=== PATIENT | male | born 1970 | race Caucasian/White ===

== ENCOUNTER 2018-03-21 22:58 | Emergency (ER) | payer OTHER ==
--- NOTE | 2018-03-22 00:22 | ED.PDOC ---
History of Present Illness - General Chief Complaint: Lower Extremity Injury Stated Complaint: Smashed Toe w/Bowling Ball Time Seen by Provider: 03/22/18 00:11 Source: patient Exam Limitations: no limitations - History of Present Illness Initial Comments: Brooks Reyes 48 y/o male stated as he was pulling stuff out of his van his bowling ball rolled down fell and smashed his left big toe which happened yesterday.has pain on weight bearing left toe. Occurred: yesterday Pain - Lower Extremity: moderate: Left Foot Method of Injury: other - see hpi Improving Factors: rest Worsening Factors: movement Associated Symptoms: pain Allergies/Adverse Reactions: Allergies NO KNOWN ALLERGY Allergy (Verified 03/22/18 00:26) Home Medications: Ambulatory Orders Amoxicillin [Amoxil] 1,000 mg PO BID #30 cap 03/22/18 Review of Systems - Review of Systems Constitutional: States: no symptoms reported EENTM: States: no symptoms reported Respiratory: States: no symptoms reported Cardiology: States: no symptoms reported Musculoskeletal: States: see HPI All other Systems: Reviewed and Negative, No Change from Baseline Past Medical History (General) - Patient Medical History Hx Seizures: No Hx Stroke: No Hx Asthma: No Hx Hypertension: No Surgical History: other - jaw,nose,excision urinary bladder tumor Family Medical History - Family History Father Family History: No Known Mother Living Status: Still Living Hx Family Asthma: No Hx Family Congestive Heart Failure: No Hx Family Hypertension: No Hx Family Stroke: No Hx Cardiac Disease: No Hx Family Diabetes: No Hx Family Cancer: No Physical Exam - Physical Exam General Appearance: Alert, Comfortable, No apparent distress Eyes, Ears, Nose, Throat: normal ENT inspection Neck: full range of motion, supple Cardiovascular/Respiratory: regular rate, rhythm, no M/R/G, normal peripheral pulses, normal breath sounds Gastrointestinal/Abdominal: non-tender, no organomegaly Back: no CVA tenderness, no vertebral tenderness Thigh/Hip: no evidence of injury Leg: no evidence of injury Knee: no evidence of injury Ankle: no evidence of injury Foot: bone tenderness - left toe, ecchymosis - left toe, soft tissue tenderness - left toe, swelling - left toe Neuro/Tendon: normal sensation, normal motor functions Mental Status: alert, oriented x 3 Skin: normal color, warm/dry Progress - Progress Progress: 03/22/18 00:37 Vital Signs - 8 hr 03/21/18 22:58 Temperature 98.2 F Pulse Rate [ 86 Apical] Respiratory 20 Rate Blood Pressure 131/82 [Left Arm] O2 Sat by Pulse 95 Oximetry - EKG/XRAY/CT XRAY: left toe-fracture tuft distal toe tuft Departure - Departure Clinical Impression: Crush fracture Fractured great toe Qualifiers: Encounter type: initial encounter Fracture type: closed Phalanx: distal Fracture alignment: nondisplaced Laterality: left Qualified Code(s): S92.425A - Nondisplaced fracture of distal phalanx of left great toe, initial encounter for closed fracture Time of Disposition: 01:30 Disposition: Discharge to Home or Self Care Condition: Fair Departure Forms: ED Discharge - Pt. Copy, Patient Portal Self Enrollment Instructions: DI for Toe Fracture, Toe Fracture Prescriptions: Amoxicillin [Amoxil] 1,000 mg PO BID #30 cap Home Medications: Ambulatory Orders Amoxicillin [Amoxil] 1,000 mg PO BID #30 cap 03/22/18 Additional Instructions: Epsom salt soak 20 minutes 3 x a day for 3-5 days as needed;elevate left leg at bedtime until better;Follow up with primary Md for referral to orthopedist May also take Aleve (otc) 1-2 tabs am/pm for pain
--- NOTE | 2018-03-22 01:20 | RAD ---
Procedure: XR left TOES 2 OR MORE VIEWS Exam Date: 03/22/2018 Ordering Provider: Norbert Patel Clinical Indication: swelling Comparison: None FINDINGS: Minimally displaced fracture of the dorsal aspect of the terminal tuft of the first toe. No other fracture or dislocation. There is no lytic or sclerotic lesion. No radiopaque foreign bodies. IMPRESSION: 1. Minimally displaced fracture of the dorsal aspect of the terminal tuft of the first toe. Electronically signed by: Ashu Nolasco MD 03/22/2018 1:19 AM CDT
[2018-03-22] MEDS ORDERED: AMOXICILLIN 500 MG CAP PO ONE (01:30)
[2018-03-22] MEDS ORDERED: HYDROCOD/APAP 7.5/325 (ER DISP) #3 TAB PO ONE (01:31)
[2018-03-22] MEDS ORDERED: TETANUS,DIPHTHERIA,PERTUSSIS 1 EA SYG IM ONE (01:51)
[2018-03-22 02:05] VITALS: TEMP 98
[2018-03-22 02:07] VITALS: BP 134/77; O2SAT 95
== END 2018-03-22 02:10 | disposition home or self-care (01) ==
LOC: ER 22:58
DX: S92.425A Nondisplaced fracture of distal phalanx of left great toe, initial encounter for closed fracture (principal); Z23 Encounter for immunization; W22.8XXA Striking against or struck by other objects, initial encounter; Y92.9 Unspecified place or not applicable